=== PATIENT | male | born 1975 | race Caucasian/White ===

== ENCOUNTER 2024-11-10 04:47 | Observation (INO) ==
[2024-11-10] MEDS ORDERED: Ondansetron 4 mg VIAL 2 MG/ML 2 ml VIAL ONE (05:14)
[2024-11-10] MEDS: Ondansetron 4 mg VIAL 2 MG/ML 2 ml VIAL IV ONE (05:31)
[2024-11-10] MEDS: Lactated Ringers 1000 ml BAG 1,000 ML IV ONE ×2 (05:32→06:04)
[2024-11-10 05:38] LABS: ABS Eosinophils 0.3 10^3/uL (0.0-0.5); ABS Lymphocytes 4.6 10^3/uL (1.0-4.8); ABS Monocytes 0.7 10^3/uL (0.0-1.1); ABS Neutrophils 5.2 10^3/uL (1.5-7.6); ABS Nucleated RBC 0.01 10^3/ul; Eosinophil % 3.1 %; Hematocrit 43.1 % (38-53); Hemoglobin 14.7 g/dL (13.2-16.3); Lymphocyte % 42.1 %; Mean Corpuscular Hemoglobin 30.5 pg (27-33); Mean Corpuscular Volume 89.7 fL (80-97); Mean Platelet Volume 8.7 fL (7.5-11.2); Nucleated Red Blood Cells % 0.1 %/100WBC (0.0-0.8); Platelet Count 380 10^3/uL (150-450); Red Blood Count 4.81 10^6/uL (4.06-5.63); Red Cell Distribution Width 13.2 % (12-17); White Blood Count 10.9 10^3/uL (3.6-10.2)
[2024-11-10] MEDS: Morphine 4 MG/ML VIAL (1 ml) IV ONE (05:53)
[2024-11-10] MEDS: HYDROmorphone 1 MG/1 ML SYRINGE IV SLOW PU ONE (06:15)
[2024-11-10 06:38] LABS: Calcium 9.8 mg/dL (8.6-10.3); Creatinine, Serum 1.27 mg/dL (0.67-1.17); Potassium 3.8 mmol/L (3.5-5.0); eGFR CKD-EPI 68.4 (>60)
[2024-11-10 06:39] LABS: Albumin 4.6 g/dL (3.5-5.7); Albumin/Globulin Ratio 1.6 (1-3); C Reactive Protein 5.03 mg/L (<8.01); Globulin 2.8 g/dL (2-4); Total Bilirubin 0.8 mg/dL (0.2-1.0); Total Protein 7.4 g/dL (6.4-8.9)
[2024-11-10] MEDS: HYDROmorphone 1 MG/1 ML SYRINGE IV ONE (06:44)
[2024-11-10] MEDS: Iohexol 300 (CONTRAST) 10 ML SDV IV ONE (07:24)
[2024-11-10] MEDS: Iohexol 350 (CONTRAST) 500 ML MDV IV ONE (07:24)
[2024-11-10 08:01] LABS: Urine Appearance Clear; Urine Bilirubin Negative (Negative); Urine Blood 3+ (Negative); Urine Color Light-Yellow; Urine Glucose Negative (Negative); Urine Ketones Trace (Negative); Urine Nitrite Negative (Negative); Urine Protein Trace (Negative); Urine Specific Gravity 1.038 (1.002-1.030); Urine Urobilinogen Negative (Negative)
[2024-11-10 08:13] LABS: Urine Bacteria Absent /HPF (Absent); Urine Red Blood Cell 3+(>10/hpf) /HPF (0-Trace); Urine White Blood Cell 1+(6-10/hpf) /HPF (0-Trace)
[2024-11-10] MEDS: Prochlorperazine 5 mg/ml 2 ml VIAL (10 mg) IV ONE ×2 (08:49→11:41)
[2024-11-10] MEDS ORDERED: Morphine 2 MG/ML SYRINGE IV PRN (12:34)
[2024-11-10] MEDS ORDERED: cefTRIAXone 1 gm/50 mL D5W 1 GM/50 ML BAG IV SCH (13:00)
[2024-11-10] MEDS: Lactated Ringers 1000 ml BAG 1,000 ML IV SCH (14:00)
[2024-11-10] MEDS: HYDROmorphone 1 MG/1 ML SYRINGE IV PRN (15:31)
[2024-11-10] MEDS: Enoxaparin 40 MG/0.4 ML SYR SUBCUT SCH (17:37)
[2024-11-10] MEDS: cefTRIAXone 1 gm/50 mL D5W 1 GM/50 ML BAG IV SCH (17:37)
[2024-11-10] MEDS: Ondansetron 4 mg VIAL 2 MG/ML 2 ml VIAL IV PRN (21:26)
[2024-11-11 05:31] LABS: ABS Basophils 0.1 10^3/uL (0.0-0.1); ABS Eosinophils 0.1 10^3/uL (0.0-0.5); ABS Lymphocytes 2.1 10^3/uL (1.0-4.8); ABS Monocytes 0.7 10^3/uL (0.0-1.1); ABS Neutrophils 6.4 10^3/uL (1.5-7.6); ABS Nucleated RBC 0.01 10^3/ul; Eosinophil % 1.5 %; Hematocrit 37.5 % (38-53); Hemoglobin 12.7 g/dL (13.2-16.3); Lymphocyte % 22.5 %; Mean Corpuscular Hemoglobin 30.1 pg (27-33); Mean Corpuscular Hgb Conc 33.9 g/dL (31-36); Mean Corpuscular Volume 88.8 fL (80-97); Mean Platelet Volume 8.2 fL (7.5-11.2); Nucleated Red Blood Cells % 0.1 %/100WBC (0.0-0.8); Platelet Count 290 10^3/uL (150-450); Red Blood Count 4.22 10^6/uL (4.06-5.63); Red Cell Distribution Width 13.2 % (12-17); White Blood Count 9.5 10^3/uL (3.6-10.2)
[2024-11-11 08:31] LABS: Calcium 8.9 mg/dL (8.6-10.3); Creatinine, Serum 0.95 mg/dL (0.67-1.17); eGFR CKD-EPI 96.9 (>60)
[2024-11-11 09:51] VITALS: BP 148/85
== END 2024-11-11 13:30 | disposition home or self-care (01) ==
LOC: ED 04:47 → EDHOLD 04:47 → SSU 14:07
PROVIDERS: ADMIT Student in an Organized Health Care Education/Training Program; ATTEND Student in an Organized Health Care Education/Training Program